=== PATIENT | female | born 1985 | race Caucasian/White ===

== ENCOUNTER 2022-06-05 09:58 | Emergency (ER) | payer OTHER, SELFPAY ==
[2022-06-05 10:09] VITALS: BP 137/85; PULSE 68; RESP 18; TEMP 37; O2SAT 99; BMI 21.3
--- NOTE | 2022-06-05 10:55 | ED_ITS ---
HPI - General Adult General Time Seen by Provider: 10:55 Date Seen: 06/05/22 Chief complaint: Vaginal Bleeding Stated complaint: Irregular bleeding Time Seen by Provider: 06/05/22 10:55 Source: patient and RN notes reviewed Mode of arrival: ambulatory Limitations: no limitations History of Present Illness HPI narrative: This very pleasant 37-year-old female is ambulatory in the ED of her own accord with concern of abnormal bleeding. She had a delivery in July of 2021, about 11 months ago. She is , is not been sexually active since the delivery. She started with bleeding about April 13. She does not feel like these are normal periods. The bleeding has intensified and then let up some. She has really been bleeding since the beginning of April. The last 2 nights she has been bleeding through her protection. She feels like there is a lot of blood. Currently with wiping she will get some stringy bloody mucousy type vaginal drainage. No abdominal pain or cramping. No fevers. Prior to her she felt like her periods were pretty normal and regular. She has just been feeling increased weak and lightheaded. She does see Dr. Lau through [facility] and does have a follow-up appointment for this scheduled on June 13. Maybe about 10 years ago she has had a history of an abnormal Pap smear in believe she had to have something along the lines of a LEEP. Pap smears have returned normal since then per her report. Related Data Home Medications Medication Instructions Recorded Confirmed sertraline 50 mg tablet 50 mg PO DAILY 06/05/22 06/05/22 Allergies Allergy/AdvReac Type Severity Reaction Status Date / Time No Known Drug Allergies Allergy Verified 06/05/22 10:16 Review of Systems Status of ROS: Reports: 10 or more systems reviewed and unremarkable except as noted in History and below [facility] Medical History (Updated 06/05/22 @ 13:28 by Ana Corea MD) Cyst of mouth Irritable bowel syndrome (IBS) PCOS (polycystic ovarian syndrome) Social History Smoking Status: Never smoker Do you use any of these nicotine containing products: None How often do you have a drink containing alcohol: monthly or less How often do you have six or more drinks on one occasion: Never AUDIT-C Alcohol total score: 1 Non-prescribed substance use: denies use Exam Const: Vital Signs, click to edit/add: Vital Signs - 24 hr 06/05/22 10:09 Temperature 98.6 F Pulse Rate [Right Pulse Oximeter] 68 Respiratory Rate 18 Blood Pressure [Ri ght Upper Arm] 137/85 Pulse Oximetry 99 Oxygen Delivery Me thod Room Air Documenting provider has reviewed patient's vital signs: yes Common normals: no apparent distress, oriented x3, no limitations, healthy appearing, alert and well nourished General appearance: cooperative, comfortable, well kempt and well developed Nutritional appearance: thin HENMT: Common normals: normocephalic, head/scalp atraumatic and hearing grossly normal bilaterally Head and scalp: normocephalic and atraumatic Eye: Common normals: PERRL, EOMs intact bilaterally, conjunctivae normal and no scleral icterus Conjunctiva: conjunctiva(e) normal Pupil: PERRL Neck & C-Spine: Common normals: full ROM, no lymphadenopathy, supple, no meningeal signs, no JVD and thyroid normal Thyroid: thyroid normal Resp: Common normals: normal respiratory effort, no retractions, no use of accessory muscles and clear to auscultation bilaterally Auscultation: clear to auscultation bilaterally Cardio: Common normals: no JVD, regular rate, regular rhythm, S1 normal heart sound, S2 normal heart sound and no gallops Rate: regular rate Rhythm: regular rhythm Heart sounds: S1 normal and S2 normal GI: Common normals: Normal to inspection, nondistended, normoactive bowel sounds present, soft to palpation, non-tender, no hepatosplenomegaly and no masses Palpation: soft and no hepatosplenomegaly Neuro: Common normals: oriented x3 Sensorium/orientation: alert Meningeal signs: no meningeal signs Psych: Appearance: well kempt Skin: Common normals: no rashes or lesions noted and skin turgor normal General skin exam: no rashes or lesions noted and turgor normal Course Course Hospital Course: Reviewed with Paz that it is likely dysfunctional uterine bleeding from hormonal changes from breast-feeding. She is not on any contraceptives, did not get an IUD. Will check labs including thyroid. We will get a pelvic ultrasound. Reviewed with heard be unlikely to have pathology such is uterine cancer at her age. Will ensure her hemoglobin is stable and that she does not require blood transfusion. At this time I would not anticipated looking at her clinically and her current hemodynamic stability with her vitals on arrival. Reevaluation(s) Reevaluation #1: Reviewed with patient her hemoglobin was good in the 14 range. We are waiting thyroid result as well as the ultrasound to be read. Time: 12:30 Consultations Consultation #1: Spoke with Dr. Gilbert regarding this case. She agrees that this is dysfunctional uterine bleeding from hormonal imbalance. Did discuss the progesterone only many pill verses a higher dose progesterone if felt the bleeding was too severe. Reviewed with her that the patient's hemoglobin is very stable. Patient can try to wait and see what happens as well per her. Went in to talk to patient right after getting off the phone with the title department manager. She is going to wait for her follow-up with her primary care provider. I do think that is reasonable. Time: 13:22 Vital Signs Vital signs: Initial Vital Signs Temperature 98.6 F 06/05/22 10:09 Temperature Source Temporal Artery Scan 06/05/22 10:09 Pulse Rate 68 06/05/22 10:09 Respiratory Rate 18 06/05/22 10:09 Blood Pressure 137/85 06/05/22 10:09 Blood Pressure Mean 102 06/05/22 10:09 Blood Pressure Position Sitting 06/05/22 10:09 Pulse Oximetry 99 06/05/22 10:09 Oxygen Delivery Method 06/05/22 10:09 Vital Signs Temperature 98.6 F 06/05/22 10:09 Pulse Rate 68 06/05/22 10:09 Respiratory Rate 18 06/05/22 10:09 Blood Pressure 137/85 06/05/22 10:09 Pulse Oximetry 99 06/05/22 10:09 Oxygen Delivery Method 06/05/22 10:09 Temperature 98.6 F 06/05/22 10:09 Pulse Rate 68 06/05/22 10:09 Respiratory Rate 18 06/05/22 10:09 Blood Pressure 137/85 06/05/22 10:09 Pulse Oximetry 99 06/05/22 10:09 Oxygen Delivery Method 06/05/22 10:09 Medical Decision Making Lab Data Lab results reviewed: Yes I reviewed the patient's lab results Labs: Lab Results 06/05/22 06/05/22 06/05/22 Range/Units 11:16 11:16 11:16 WBC 4.64 (4.50-11.00) K/uL RBC 4.72 (4.00-5.20) m/uL Hgb 14.4 (12.0-16.0) gm/dL Hct 42.8 (33.0-51.0) % MCV 91 (80-100) fL MCH 31 (26-34) pg MCHC 34 (32-36) gm/dL RDW Coeff of Manisha 11.1 L (11.5-15.5) % Plt Count 356 (140-440) K/uL Neut % (Auto) 54.8 (42.0-72.0) % Lymph % (Auto) 36.4 (20-44) % O'Brien % (Auto) 6.5 (0.0-11.0) % Eos % (Auto) 1.7 (0.0-7.0) % Baso % (Auto) 0.4 (0.0-3.0) % Neut # (Auto) 2.54 (1.7-7.0) K/uL Lymph # (Auto) 1.69 (0.90-2.90) K/uL O'Brien # (Auto) 0.30 (0.00-0.90) K/UL Eos # (Auto) 0.08 (0.00-0.50) K/uL Baso # (Auto) 0.02 (0.00-0.30) K/uL Sodium 140 (135-149) mmol/L Potassium 4.8 (3.6-5.1) mmol/L Chloride 107 (96-114) mmol/L Carbon Dioxide 26 (20-32) mmol/L BUN 14 (5-24) mg/dL Creatinine 0.7 (0.5-1.5) mg/dL Estimated Creat Clear 111.38 Estimated GFR 115 ml/min Glucose 97 (60-115) mg/dL Calcium 9.3 (8.4-10.6) mg/dL Total Bilirubin 0.5 (0.1-1.5) mg/dL AST 22 (12-35) U/L ALT 19 (4-35) U/L Alkaline Phosphatase 65 (40-150) U/L Total Protein 7.8 (6.0-8.3) g/dL Albumin 4.9 (3.3-5.0) g/dL TSH 1.610 (0.270-4.200) uIU/mL HCG, Qual (Negative) 06/05/22 Range/Units 11:16 WBC (4.50-11.00) K/uL RBC (4.00-5.20) m/uL Hgb (12.0-16.0) gm/dL Hct (33.0-51.0) % MCV (80-100) fL MCH (26-34) pg MCHC (32-36) gm/dL RDW Coeff of Manisha (11.5-15.5) % Plt Count (140-440) K/uL Neut % (Auto) (42.0-72.0) % Lymph % (Auto) (20-44) % O'Brien % (Auto) (0.0-11.0) % Eos % (Auto) (0.0-7.0) % Baso % (Auto) (0.0-3.0) % Neut # (Auto) (1.7-7.0) K/uL Lymph # (Auto) (0.90-2.90) K/uL O'Brien # (Auto) (0.00-0.90) K/UL Eos # (Auto) (0.00-0.50) K/uL Baso # (Auto) (0.00-0.30) K/uL Sodium (135-149) mmol/L Potassium (3.6-5.1) mmol/L Chloride (96-114) mmol/L Carbon Dioxide (20-32) mmol/L BUN (5-24) mg/dL Creatinine (0.5-1.5) mg/dL Estimated Creat Clear Estimated GFR ml/min Glucose (60-115) mg/dL Calcium (8.4-10.6) mg/dL Total Bilirubin (0.1-1.5) mg/dL AST (12-35) U/L ALT (4-35) U/L Alkaline Phosphatase (40-150) U/L Total Protein (6.0-8.3) g/dL Albumin (3.3-5.0) g/dL TSH (0.270-4.200) uIU/mL HCG, Qual Negative (Negative) Imaging Data Pelvic ultrasound: Attestation: I have reviewed the pertinent imaging results. Radiologist's impression: Patient: PAZ RACHID Facility:?[facility] Patient ID:?[id number] Site Patient ID:?[id number]. Site :?[id number] Study:?US Pelvis -06/05/2022 12:12:34 PM Ordering Physician:Neil Perez Final Report: INDICATION: DUB, 11MO COMPARISON: none TECHNIQUE: 2D merino scale and color Doppler images were acquired of the pelvis using a transabdominal and transvaginal approach. FINDINGS: Sonographic images demonstrate a normal size and smooth outer contour of the uterus. Uterus measures 7.9 cm in length by 4.7 cm in AP diameter by 5.5 cm in transverse dimension. The myometrium has a normal uniform echotexture. The endometrial lining measures 11 mm in composite thickness. No endometrial fluid. The right ovary measures 2.7 x 1.0 x 1.8 cm in size and the left ovary measures 2.8 x 1.0 x 1.7 cm. The ovaries demonstrate normal arterial and venous blood flow on color Doppler analysis. There are no suspicious fluid collections within the cul-de-sac. Trace physiologic free fluid noted. IMPRESSION: Endometrial thickness 11 millimeters. No endometrial fluid. No uterine fibroid. Trace pelvic free fluid, physiologic. Dictated by Zaki Gordon MD @ 06/05/2022 1:09:22 PM (Electronic Signature) Critical Care Time Critical Care Time Critical Care Time: No Discharge Plan Discharge Clinical Impression: DUB (dysfunctional uterine bleeding) Patient Disposition: Home, Self-Care Condition: Stable Instructions: Abnormal (Dysfunctional) Uterine Bleeding (ED) Additional Instructions: Keep your scheduled follow-up with your primary care provider. Progesterone only contraception can be used to try to regulate your current bleeding. At this time, your hemoglobin is stable, thyroid normal and pelvic ultrasound showing no abnormal anatomy. Thus, do think it is fine to await evaluation with your primary care provider. If your bleeding is increasing in the interim, do recommend recheck sooner. Activity Level: Activity as Tolerated Discharge Diet: Regular Prescriptions: No Action sertraline 50 mg tablet 50 mg PO DAILY Stand Alone Forms: [employer] Info Instructions
--- NOTE | 2022-06-05 11:04 | CRLHL7_ITS ---
For Patients: As a result of the Century Cures Act, medical imaging exams and procedure reports are released immediately into your electronic medical record. You may view this report before your referring provider. If you have questions, please contact your health care provider. INDICATION: DUB, 11MO COMPARISON: none TECHNIQUE: 2D merino scale and color Doppler images were acquired of the pelvis using a transabdominal and transvaginal approach. FINDINGS: Sonographic images demonstrate a normal size and smooth outer contour of the uterus. Uterus measures 7.9 cm in length by 4.7 cm in AP diameter by 5.5 cm in transverse dimension. The myometrium has a normal uniform echotexture. The endometrial lining measures 11 mm in composite thickness. No endometrial fluid. The right ovary measures 2.7 x 1.0 x 1.8 cm in size and the left ovary measures 2.8 x 1.0 x 1.7 cm. The ovaries demonstrate normal arterial and venous blood flow on color Doppler analysis. There are no suspicious fluid collections within the cul-de-sac. Trace physiologic free fluid noted. IMPRESSION: Endometrial thickness 11 millimeters. No endometrial fluid. No uterine fibroid. Trace pelvic free fluid, physiologic. Dictated by Zaki Gordon MD @ 06/05/2022 1:09:22 PM (Electronically Signed)
[2022-06-05 11:29] LABS: Basophils Absolute Auto 0.02 K/uL (0.00-0.30); Basophils Percent Auto 0.4 % (0.0-3.0); Eosinophils Absolute Auto 0.08 K/uL (0.00-0.50); Eosinophils Percent Auto 1.7 % (0.0-7.0); Hematocrit 42.8 % (33.0-51.0); Hemoglobin* 14.4 gm/dL (12.0-16.0); Immature Granulocytes Abs Auto 0.01 K/uL (0.00-0.30); Immature Granulocytes Pct Auto 0.2 %; Lymphocytes Absolute Auto 1.69 K/uL (0.90-2.90); Lymphocytes Percent Auto 36.4 % (20-44); Mean Corpuscular HGB Conc 34 gm/dL (32-36); Mean Corpuscular Hemoglobin 31 pg (26-34); Mean Corpuscular Volume 91 fL (80-100); Monocytes Percent Auto 6.5 % (0.0-11.0); Neutrophils Absolute Auto 2.54 K/uL (1.7-7.0); Neutrophils Percent Auto 54.8 % (42.0-72.0); Platelet Count* 356 K/uL (140-440); RDW Coefficient of Variation % 11.1 % (11.5-15.5); Red Blood Count 4.72 m/uL (4.00-5.20); White Blood Count* 4.64 K/uL (4.50-11.00)
[2022-06-05 11:42] LABS: Slide Review Reflex No
[2022-06-05 11:50] LABS: Albumin* 4.9 g/dL (3.3-5.0); Chloride* 107 mmol/L (96-114); Sodium* 140 mmol/L (135-149)
[2022-06-05 11:51] LABS: Potassium* 4.8 mmol/L (3.6-5.1)
[2022-06-05 11:53] LABS: Alanine Aminotransferase* 19 U/L (4-35); Alkaline Phosphatase* 65 U/L (40-150); Aspartate Amino Transferase* 22 U/L (12-35); Bilirubin Total* 0.5 mg/dL (0.1-1.5); Blood Urea Nitrogen* 14 mg/dL (5-24); Calcium* 9.3 mg/dL (8.4-10.6); Creatinine* 0.7 mg/dL (0.5-1.5); Est. Creatinine Clearance* 111.38; Estimated Glomerular Filt Rate 115 ml/min; Glucose* 97 mg/dL (60-115); Total Protein* 7.8 g/dL (6.0-8.3)
[2022-06-05 12:09] LABS: Carbon Dioxide* 26 mmol/L (20-32)
[2022-06-05 12:27] LABS: HCG Qualitative Serum* Negative (Negative)
[2022-06-05 13:35] VITALS: BP 140/97; PULSE 56; O2SAT 99
== END 2022-06-05 13:36 | disposition home or self-care (01) ==
PROVIDERS: Emergency Provider Family Medicine; PCP Family Medicine
DX: N93.8 Other specified abnormal uterine and vaginal bleeding (principal)
CPT/HCPCS: 36415; 76830; 76856; 80053; 84443; 84703; 85025; 99284